=== PATIENT | male | born 1970 | race Caucasian/White ===

== ENCOUNTER 2018-06-22 09:53 | Day surgery (SDC) | payer OTHER ==
[2018-06-22 10:46] VITALS: BMI 23.0
[2018-06-22] MEDS ORDERED: TOBRA 0.3%/DEXAMETH 0.1% OPHTHALMIC SUSP 2.5 ML BTL ONE (10:54)
[2018-06-22] MEDS ORDERED: MIDAZOLAM HCL 2 MG/2 ML SINGLE DOSE VIAL ONE (10:56)
[2018-06-22] MEDS: TOBRA 0.3%/DEXAMETH 0.1% OPHTHALMIC SUSP 2.5 ML BTL OS SCH ×2 (11:00→11:15)
[2018-06-22] MEDS ORDERED: ACETAMINOPHEN 325 MG TABLET (FP) PO PRN (12:03)
[2018-06-22] MEDS ORDERED: BACITRACIN/POLYMYXIN OPH OINT 3.5 GM TUBE ONE (12:18)
[2018-06-22] MEDS ORDERED: LIDOCAINE HCL 2% JELLY 10 ML CARTRIDGE ONE (12:19)
[2018-06-22] MEDS ORDERED: EPI-SHUGARCAINE (EPINEPHRINE 0.025% & LIDOCAINE-PF 0.75%) 4ML ONE (12:31)
[2018-06-22] MEDS ORDERED: ONDANSETRON 4 MG/2 ML VIAL IVPUSH PRN (12:40)
[2018-06-22] MEDS ORDERED: oxyCODONE HCL 5 MG TABLET PO PRN ×2 (12:40)
[2018-06-22] MEDS ORDERED: PROPOFOL 20 ML ONE (12:45)
[2018-06-22] MEDS ORDERED: LIDOCAINE HCL/PF 2% SDV 5ML VIAL ONE (12:45)
[2018-06-22] MEDS ORDERED: LIDOCAINE HCL/EPINEPHRINE/PF 20 ML VIAL ONE (12:49)
[2018-06-22] MEDS ORDERED: BSS (NA/CA/MG/K) BALANCED SALT SOLUTION OPHTH SOLN 15 ML BOTTLE ONE (13:15)
[2018-06-22] MEDS ORDERED: TETRACAINE 0.5% OPHTH SOLN 2 ML BOTTLE ONE (13:53)
[2018-06-22] MEDS ORDERED: LIDOCAINE 1% P/F 10 MG/ML VIAL ONE (14:04)
[2018-06-22] MEDS ORDERED: methylPREDNISolone NA SUCC 40 MG/1 ML VIAL ONE (14:04)
[2018-06-22] MEDS ORDERED: methylPREDNISolone NA SUCC 40 MG/1 ML VIAL IVPUSH ONE (14:08)
[2018-06-22] MEDS ORDERED: LIDOCAINE 1% P/F 10 MG/ML VIAL INF ONE (14:08)
[2018-06-22 14:54] VITALS: TEMP 98.5
[2018-06-22 15:32] VITALS: BP 130/81; PULSE 91
--- NOTE | 2018-06-22 20:47 | OP ---
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 SURGEON: Alex Resendez MD ANESTHESIA: Local with standby. BATCH OR CONTINUOUS STILL OPERATOR: Bjorn Cast MD PREOPERATIVE DIAGNOSIS: Large pterygium temporally located encroaching on pupil, left eye. POSTOPERATIVE DIAGNOSIS: Large pterygium temporally located encroaching on pupil, left eye with large conjunctival defect. FINDINGS OF PROCEDURE: After a lid block was performed to the left eye with 2% Xylocaine with epinephrine to the upper and lower lids, the patient was prepped and draped in the usual manner to expose the left eye, and sugar cane was applied topically as was Viscoat on the cornea, and a traction suture of 6-0 Vicryl was placed at 12 o'clock at the limbus and the eye placed in the adducted position. Temporal pterygium was in focus, and a careful dissection of the body and the head of the pterygium was done with a combination of scissors, 0.12 forceps, and a crescent blade leaving a clear cornea and a large conjunctival defect. Mitomycin-soaked pledgets were used in the conjunctival bed in the limbal area and applied for about 2 minutes and the concentration was 0.02% and then this was copiously irrigated with BSS and the wound was then closed partially primarily with 4 interrupted 2-0 Ethilon sutures leaving a conjunctival defect of approximately 8 mm x 5 mm. The graft was harvest superiorly, and the stem cells were oriented at the limbus and sutured into place. An additional 5 sutures were placed to keep the graft opposed to the patient's own conjunctiva. A total of approximately 12 sutures were placed interrupted 10-0 Ethilon sutures. Then a subconjunctival injection of Solu-Medrol and lidocaine was injected in the inferior cul-de-sac of approximately 1 mm and approximately 20 mg of Solu-Medrol. The traction suture was cut and removed from the eye. At this point, the globe was intact and normal pressure. Red reflex present and pupil normal and a conjunctival graft in place and the cornea clear. The Tegaderm strips were removed from the lashes. The lid speculum was removed. Bacitracin and polymyxin B ophthalmic ointment was placed over the cornea topically. The lids were closed, and a mild pressure patch and a shield were placed over the left eye, and the patient was then discharged from the operating room to the recovery room in good condition having tolerated the procedure well. ALEX RESENDEZ M.D. RANGEL/[id number]
--- NOTE | 2018-06-24 11:59 | PATH ---
Surgical Pathology Report Patient Name: BLAZE [place] [facility]. Rec. #: [id number] /Age/Gender: 1970 (Age: 48) / M Account: [id number] Location: [facility] Taken: 06/22/2018 Received: 06/22/2018 Reported: 06/24/2018 Physicians: Julian Bernal Specimen(s) Received PTERYGIUM LEFT EYE Clinical History Pterygium left eye Final Diagnosis PTERYGIUM, EYE, LEFT, EXCISION: PTERYGIUM WITH FOCAL MILD ACUTE INFLAMMATION. Electronically Signed Agueda Aden M.D. Gross Description Received in formalin, labeled "pterygium left eye" is a mars, irregular portion of soft tissue measuring 0.6 cm. in greatest dimension. The specimen is submitted in toto in one cassette. 06/23/201806/23/2018
== END 2018-06-22 15:25 | disposition home or self-care (01) ==
LOC: FASU 09:53
PROVIDERS: ATTEND Ophthalmology
PROC: 08BTXZZ Excision of Left Conjunctiva, External Approach (ICD-10-PCS; principal; 2018-06-22 13:00)
DX: H11.032 Double pterygium of left eye (principal)
CPT/HCPCS: 88304-TC